=== PATIENT | female | born 1995 | race Caucasian/White ===

== ENCOUNTER 2023-07-17 20:29 | Emergency (ER) | payer MEDICAID, SELFPAY ==
[2023-07-17 20:37] VITALS: BP 143/83; PULSE 94; RESP 18; TEMP 37.2; O2SAT 99
--- NOTE | 2023-07-17 21:40 | ED_ITS ---
HPI - General Adult General Chief complaint: Unspecified Complaint, Adult Stated complaint: Back pain, incontinence, L leg numb Time Seen by Provider: 07/17/23 20:30 History of Present Illness HPI narrative: This 27-year-old female comes in with worsening low back symptoms with numbness down her left leg. She has been having some symptoms in her low back for the past 2 or 3 weeks and symptoms have been worsening. She was instructed to get an MRI but needed to have a physical 1st from her primary physician. This was completed and an MRI was ordered and completed at the [facility] in [place]. The patient states that she received a phone call from her doctor that the report was negative. She states that she is significantly worse today and reports 3 episodes of urinary incontinence. She does not report any stool incontinence or retention. She does have loss of sensation in parts of her perineum. She states that she is not having that much pain right now because everything seems numb. She does have some difficulty walking. Related Data Home Medications ?Medication ?Instructions ?Recorded ?Confirmed isotretinoin 30 mg capsule 30 mg PO BID 04/14/23 04/14/23 Allergies Allergy/AdvReac Type Severity Reaction Status Date / Time No Known Drug Allergies Allergy Verified 04/14/23 18:30 Review of Systems Status of ROS: Reports: 10 or more systems reviewed and unremarkable except as noted in History and below Narrative: Constitutional: No fevers, no weight gain or loss. Eyes: No discharge. No vision changes. HENT: No congestion, no sore throat, no ear pain. Cardiovascular: No chest pain, no palpitations. Respiratory: No shortness of breath, no wheezes, no cough. Gastrointestinal: No abdominal pain, no vomiting, no diarrhea. Genitourinary: No hematuria. Urinary incontinence 3 times today. Musculoskeletal: Normal range of motion. Skin: No rashes, no pruritis. Neurological: No dizziness, sensory change, speech change. Low back discomfort with paresthesias and anesthesia radiating into her left leg and groin. Endo/Heme/Allergies: No bruising or bleeding. No polydipsia. Pysch: no suicidality, no anxiety, no insomnia. All other systems reviewed and are negative. [facility] Surgical History (Updated 04/18/23 @ 11:36 by Sonal Portillo NP) History of tonsillectomy ?Z90.89 - Acquired absence of other organs (ICD-10) Exam Narrative: Exam Narrative: Constitutional: Well-developed, well-nourished, no acute distress. HEENT: Normocephalic, atraumatic. Neck: Normal range of motion. Nontender. Supple. Heart: Regular. No murmurs. Normal rate. Intact distal pulses. Lungs: Clear to auscultation. No chest discomfort. No wheezes, rhonchi, or rales. Abdomen: Normal bowel sounds. Nontender. No rebound tenderness. Genitalia: Deferred. Extremities: Normal range of motion. No injury. Skin: Intact. No rash. Warm. No erythema or pallor. Neurologic: Alert and oriented. Straight leg raise is positive. Decreased sensation throughout her whole left leg with anesthesia in the left groin and inguinal region. I pinched her skin right at the inguinal fold and she did not feel any pain. Psychiatric: No suicidality. No anxiety or depression. No insomnia. Nursing notes and vitals signs are reviewed. Const: Vital Signs, click to edit/add: Vital Signs - 24 hr 07/17/23 20:37 Temperature 98.9 F Pulse Rate [Pulse Oximeter] 94 Respiratory Rate 18 Blood Pressure [Ri ght Upper Arm] 143/83 H Pulse Oximetry 99 Oxygen Delivery Me thod Room Air Course Vital Signs Vital signs: Initial Vital Signs Temperature 98.9 F 07/17/23 20:37 Temperature Source Temporal Artery Scan 07/17/23 20:37 Pulse Rate 94 07/17/23 20:37 Respiratory Rate 18 07/17/23 20:37 Blood Pressure 143/83 H 07/17/23 20:37 Blood Pressure Mean 103 07/17/23 20:37 Blood Pressure Position Sitting 07/17/23 20:37 Pulse Oximetry 99 07/17/23 20:37 Oxygen Delivery Method Room Air 07/17/23 20:37 Vital Signs Temperature 98.9 F 07/17/23 20:37 Pulse Rate 94 07/17/23 20:37 Respiratory Rate 18 07/17/23 20:37 Blood Pressure 143/83 H 07/17/23 20:37 Pulse Oximetry 99 07/17/23 20:37 Oxygen Delivery Method Room Air 07/17/23 20:37 Temperature 98.9 F 07/17/23 20:37 Pulse Rate 94 07/17/23 20:37 Respiratory Rate 18 07/17/23 20:37 Blood Pressure 143/83 H 07/17/23 20:37 Pulse Oximetry 99 07/17/23 20:37 Oxygen Delivery Method Room Air 07/17/23 20:37 Medical Decision Making MDM Narrative Medical decision making narrative: This patient comes in with worsening low back pain and is showing signs and symptoms of cauda equina syndrome. She did have an MRI 2 days ago but images and report are not available. This was done through the [place] system. A call was made to [facility] but they stated that they are full and there was no further interested in any further conversation as to how they could help. A call was then made to [facility]. I spoke with a residential treatment specialist on- call, Dr. Huntley, who stated that she should come for MRI assessment. There are no beds available for about 8 hours but given the emergent possibility of cauda equina syndrome I then spoke with an emergency physician, Dr. Khan, who agreed to have her transferred there for an emergent MRI to further evaluate her symptoms. The patient is not in much discomfort as she states most of her symptoms are paresthesias or anesthesia. She will go by ambulance to [facility] Emergency Department. Discharge Plan Discharge Clinical Impression: Cauda equina syndrome Patient Disposition: Xfer [facility] Condition: Unchanged Prescriptions: No Action isotretinoin 30 mg capsule 30 mg PO BID Follow Up/Referrals: Provider,Not a Local [Primary Care Provider] - Stand Alone Forms: [employer] Info Instructions
[2023-07-17 21:49] VITALS: BP 131/86; PULSE 91; RESP 18; O2SAT 99
== END 2023-07-17 22:13 | disposition short-term general hospital (02) ==
PROVIDERS: Emergency Provider Emergency Medicine Emergency Medical Services
DX: M54.50 Low back pain, unspecified (principal); G83.4 Cauda equina syndrome
CPT/HCPCS: 99285

== ENCOUNTER 2023-07-17 22:09 | Outpatient (CLI) | payer MEDICAID, SELFPAY | END 2023-07-17 22:10 | disposition home or self-care (01) | LOC: AMB 07-22 18:51 | PROVIDERS: Visit Provider Emergency Medicine Emergency Medical Services | DX: G83.4 Cauda equina syndrome (principal) | CPT/HCPCS: A0425; A0429 ==

== ENCOUNTER 2023-09-28 14:32 | Outpatient (CLI) | payer MEDICAID, SELFPAY | END 2023-09-28 14:33 | disposition home or self-care (01) | LOC: WOUND 14:32 | PROVIDERS: Visit Provider Nurse Practitioner Family | DX: F44.4 Conversion disorder with motor symptom or deficit; S90.822A Blister (nonthermal), left foot, initial encounter | CPT/HCPCS: G0463 ==

== ENCOUNTER 2024-05-08 08:54 | Outpatient (CLI) | payer OTHER, SELFPAY ==
[2024-05-10 00:59] LABS: HPV Source Cervix; HPV, High Risk by TMA Not Detected
== END 2024-05-08 08:55 | disposition home or self-care (01) ==
PROVIDERS: PCP Registered Nurse; Visit Provider Registered Nurse
DX: Z12.4 Encounter for screening for malignant neoplasm of cervix (principal)
CPT/HCPCS: 87624; 87625; 88141; 88142

== ENCOUNTER 2024-06-11 15:12 | Outpatient (CLI) | payer OTHER, SELFPAY ==
[2024-06-11 19:53] LABS: Bacterial Vaginosis* Negative (Negative); Candida glab/krus NOT DETECTED (No Detected); Candida species NOT DETECTED (No Detected); Trichomonas vaginalis NOT DETECTED (No Detected)
[2024-06-11 20:24] LABS: Chlamydia DNA Amplified* NOT DETECTED (No Detected); GC DNA Amplified* NOT DETECTED (No Detected)
== END 2024-06-11 15:13 | disposition home or self-care (01) ==
PROVIDERS: PCP Registered Nurse; Visit Provider Physician Assistant
DX: N93.0 Postcoital and contact bleeding (principal); Z11.3 Encounter for screening for infections with a predominantly sexual mode of transmission
CPT/HCPCS: 81513; 87109; 87481; 87491; 87591; 87661

== ENCOUNTER 2024-09-01 15:51 | Emergency (ER) | payer OTHER, SELFPAY ==
[2024-09-01 16:12] VITALS: BP 148/97; PULSE 98; RESP 20; TEMP 37.4; O2SAT 98; BMI 24.6
--- NOTE | 2024-09-01 16:26 | ED_ITS ---
HPI - Abdominal Pain General Time Seen by Provider: 16:26 Date Seen: 09/01/24 Chief Complaint: Abdominal Pain Stated Complaint: stomach pain, bleeding Time Seen by Provider: 09/01/24 16:25 Source: patient and RN notes reviewed Mode of arrival: ambulatory Limitations: no limitations History of Present Illness HPI narrative: This 28-year-old female is coming into the ER with concerns of lower abdominal pain, some loose stools, some brownish watery vaginal discharge, some shoulder discomfort that does not hurt with movement, lightheadedness, cold tingly sensation over her body. Since Monday, she noted some brownish discharge vaginally, watery, there is no itching, no discomfort. She and her are actively attempting to conceive. She had a negative test last night and this morning. She was due to get her. On Monday. She has noticed some lower pelvic discomfort, feels like she has urinary urgency and fecal urgency. She has not had diarrhea or blood in her stools but has had softer stools. She just does not feel good but has had no fevers. Monday is when the lower abdominal pain really ensued. She has some right shoulder discomfort without trauma, does not hurt with movement of the shoulder, just feels a achy sensation of this shoulder. Today she started to feel lightheaded and has a sense of a cool tingly sensation all over her body. She admits that she has anxiety but just wants to get checked out. She has had an appendectomy in 2016, this is her only abdominal surgery. She has no respiratory symptoms with this. She has noted some nausea but no vomiting, has felt like she bloats easily with eating or drinking and feels like she has not been able to drink as much, feels she might be dehydrated. Related Data Home Medications ?Medication ?Instructions ?Recorded ?Confirmed azelaic acid 15 % topical gel 1 applic topical BID 06/21/24 buspirone 10 mg tablet 10 mg PO DAILY 06/11/2408/14 clindamycin phosphate 1 % topical 1 applic topical QDA Y 06/11/24 09/01/24 solution metronidazole 0.75 % topical cream 1 applic topical QD AY 06/11/24 06/21/24 mupirocin 2 % topical ointment 1 applic topical BID 06/21/24 sulfacetamide sodium 8 %-sulfur 4 1 applic topical QDA Y 06/11/24 06/21/24 % topical cleanser sulfacetamide sodium-sulfur 10 %-5 1 applic topical QD AY 06/11/24 06/21/24 % (w/w) topical cleanser Previous Rx's ?Medication ?Instructions ?Recorded azithromycin 250 mg tablet See Rx Instructions PO .COM PLEX #6 07/12/24 tabs Allergies Allergy/AdvReac Type Severity Reaction Status Date / Time doxycycline AdvReac Intermediate Gastrointestinal Verified 09/01/24 16:10 Upset Review of Systems Status of ROS Reports: 6 or more systems reviewed and unremarkable except as noted in History and below PFSH PFS Medical History Acne ?L70.9 - Acne, unspecified (ICD-10) MAMI (generalized anxiety disorder) ?F41.1 - Generalized anxiety disorder (ICD-10) Scoliosis ?M41.9 - Scoliosis, unspecified (ICD-10) Conversion disorder ?F44.9 - Dissociative and conversion disorder, unspecified (ICD-10) Surgical History History of appendectomy ?Z90.49 - Acquired absence of other specified parts of digestive tract (ICD- 10) H/O colposcopy with cervical biopsy ?Z98.890 - Other specified postprocedural states (ICD-10) History of tonsillectomy ?Z90.89 - Acquired absence of other organs (ICD-10) Family History Paternal Grandfather Heart disease Maternal Grandfather Heart disease Social History Narrative: works as a teacher, 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, 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, is a infantry officer Physical activity type: walking How many days of moderate to strenuous exercise, like a brisk walk, did you do in the last 7 days: 5 Smoking Status: Never smoker How often do you have a drink containing alcohol: 2-4 times a month AUDIT-C Alcohol total score: 2 Non-prescribed substance use: denies use Caffeine: Yes Are you now , , , , never or living with a partner: Social isolation score (0-1 are the most socially isolated patients): 1 Exam Const: Vital Signs, click to edit/add: Vital Signs - 24 hr 09/01/24 16:12 Temperature 99.3 F Pulse Rate [Pulse Oximeter] 98 Respiratory Rate 20 Blood Pressure [Ri ght Upper Arm] 148/97 H Pulse Oximetry 98 Oxygen Delivery Me thod Room Air This 22-year-old female is alert, interactive, no apparent distress but tearful and on seemingly anxious or and discussion. She certainly is pleasant however. Sclera clear, symmetrical facial function. Neck supple, no masses or rand opathy. Lungs are clear come good air entry, no wheezing or crackles, no tachypnea, no accessory muscle use. CV regular rate and rhythm, no murmur, normal S1-S2, no S3-S4. Abdomen is soft, nondistended, mild pelvic tenderness worse in the right lower outer quadrant and suprapubic area but no rebound or guarding, no organomegaly or masses felt. No appreciable left lower quadrant tenderness. Patient's body habitus is slender. Skin visualized without any rash. She has no pain on range of motion of shoulder but just feels a dull ache within the shoulder itself. Pelvic exam deferred at this point. Documenting provider has reviewed patient's vital signs: yes Course Course ED Course: Have reviewed with patient that we can proceed with pelvic US for imaging to rule out any ovarian/pelvic pathology. We can collect vaginitis swab, urine HCG and urinalysis. Will get full complement of labs. The shoulder pain doesn't seem to have anatomical pain with range of motion to it, could be referred pain. Will wait on labs and pelvic imaging but do not think we need to proceed with CT imaging at this time. Will look for infectious etiology, related issues or ovarian issues. Reevaluation(s) Time of Reevaluation #1: 18:38 Reevaluation #1: Reviewed patient's labs and her ultrasound with her. I would expect that she will be getting her menstrual cycle shortly with the collapsing corpus luteum cysts seen on the right ovary. She may have had pain on that right ovary from ovulation on that side and now the involuting corpus luteum. She is not pre gnant at this point but we did discuss that her ovary is functioning certainly, that is reassuring. Her labs are all reassuring. Would not recommend CT imaging at this time. We are going to discharge to home, she will follow up in clinic with ongoing concerns. She understands signs and symptoms to return to the ER. Vital Signs Vital signs: Initial Vital Signs Temperature 99.3 F 09/01/24 16:12 Temperature Source Temporal Artery Scan 09/01/24 16:12 Pulse Rate 98 09/01/24 16:12 Respiratory Rate 09/01/24 16:12 Blood Pressure 148/97 H 09/01/24 16:12 Blood Pressure Mean 114 H 09/01/24 16:12 Pulse Oximetry 98 09/01/24 16:12 Oxygen Delivery Method Room Air 09/01/24 16:12 Vital Signs Temperature 99.3 F 09/01/24 16:12 Pulse Rate 98 09/01/24 16:12 Respiratory Rate 20 09/01/24 16:12 Blood Pressure 148/97 H 09/01/24 16:12 Pulse Oximetry 98 09/01/24 16:12 Oxygen Delivery Method Room Air 09/01/24 16:12 Temperature 99.3 F 09/01/24 16:12 Pulse Rate 98 09/01/24 16:12 Respiratory Rate 09/01/24 16:12 Blood Pressure 148/97 H 09/01/24 16:12 Pulse Oximetry 98 09/01/24 16:12 Oxygen Delivery Method Room Air 09/01/24 16:12 Medications Administered Medications: Discontinued Medications Generic Name Dose Route Start Last Admin Trade Name Greogria PRN Reason Stop Dose Admin Sodium Chloride 1,000 mls @ 500 mls/hr 09/01/24 16:38 09/01/24 17:10 0.9 % Sodium Chloride 1000 Ml IV 09/01/24 18:37 500 mls/hr .Q2H PAT Administration MDM - Abdominal Pain Lab Data Attestation: I reviewed the patient's lab results. Labs: Lab Results 09/01/24 09/01/24 Range/Units 16:36 16:56 WBC 4.83 (4.50-11.00) K/uL RBC 4.52 (4.00-5.20) m/uL Hgb 13.0 (12.0-16.0) gm/dL Hct 38.4 (33.0-51.0) % MCV 85 (80-100) fL MCH 29 (26-34) pg MCHC 34 (32-36) gm/dL RDW Coeff of Delphine 13.0 (11.5-15.5) % Plt Count 271 (140-440) K/uL Neut % (Auto) 62.7 (42.0-72.0) % Lymph % (Auto) 25.5 (20-44) % [place] % (Auto) 9.5 (0.0-11.0) % Eos % (Auto) 1.7 (0.0-7.0) % Baso % (Auto) 0.4 (0.0-3.0) % Neut # (Auto) 3.03 (1.7-7.0) K/uL Lymph # (Auto) 1.23 (0.90-2.90) K/uL [place] # (Auto) 0.50 (0.00-0.90) K/UL Eos # (Auto) 0.08 (0.00-0.50) K/uL Baso # (Auto) 0.02 (0.00-0.30) K/uL Abs Immat Gran (auto) 0.01 (0.00-0.30) K/uL Imm/Tot Granulo (auto) 0.2 % Sodium 140 (135-149) mmol/L Potassium 3.7 (3.6-5.1) mmol/L Chloride 109 (96-114) mmol/L Carbon Dioxide 20 (20-32) mmol/L Anion Gap 11 (7-15) mEq/L BUN 9 (5-24) mg/dL Creatinine 0.8 (0.5-1.5) mg/dL Estimated Creat Clear 94.21 Estimated GFR 103 ml/min Glucose 100 (60-115) mg/dL Lactate 1.5 (0.5-1.9) mmol/L Calcium 9.0 (8.4-10.6) mg/dL Total Bilirubin 0.4 (0.1-1.5) mg/dL Direct Bilirubin 0.1 (0.0-0.5) mg/dL AST 25 (12-35) U/L ALT 17 (4-35) U/L Alkaline Phosphatase 49 (40-150) U/L C-Reactive Protein < 0.5 L (0.5-1.0) mg/dL Total Protein 7.5 (6.0-8.3) g/dL Albumin 4.4 (3.3-5.0) g/dL Lipase 81 (23-300) U/L Urine Color Yellow (Yellow) Urine Appearance Clear (Clear) Urine pH 7.0 (5.0-8.5) Ur Specific [place] 1.010 (1.000-1.030) Urine Protein Negative (Negative) Urine Glucose (UA) Negative (Negative) Urine Ketones Negative (Negative) Urine Blood 2+ A (Negative) Urine Nitrite Negative (Negative) Urine Bilirubin Negative (Negative) Urine Urobilinogen 0.2 (0.2-1.0) Ur Leukocyte Esterase Negative (Negative) Urine RBC 2-5 A (0-2) Urine WBC 0-2 (0-5) Ur Squamous Epith Cells Few (None-Few) Urine Bacteria Moderate A (None) Urine HCG, Qual Negative (Negative) Vaginal Bacterial Vaginosis Negative (Negative) Vaginal Barbie species NOT DETECTED (No Detected) Vag C. glabrata/krusei NOT DETECTED (No Detected) Vag T. vaginalis NOT DETECTED (No Detected) Imaging Data US pelvis: Attestation: I have reviewed the pertinent imaging results. Radiologist's impression: Patient: ERIK KEYES Facility:?[facility] Patient ID:?[id number] Site Patient ID:?[id number]. Site :?[id number] Study:?US-Pelvis -09/01/2024 5:47:21 PM Ordering Physician:?Avelino Valencia Final Report: INDICATION: Pelvic pain. TECHNIQUE: Ultrasound pelvis transabdominal and transvaginal for better assessment or to better visualize the endometrium. Real-time sonographic images with spectral and color Doppler imaging of the ovaries were obtained. COMPARISON: None. FINDINGS: Uterus: size cm. Normal echotexture of the myometrium. No masses. Endometrium: Transvaginal imaging was performed to better evaluate the endometrium. Endometrial thickness measures 6 mm. Few small echogenic foci in the endometrium are nonspecific, but may reflect calcifications from remote inflammation. No sign of endometrial mass or fluid. Right ovary 5.8 mL. Left ovary 5.7 mL. Right ovarian mildly heterogeneous ovoid focus measures 1.1 cm. Normal arterial and venous blood flow is demonstrated in both ovaries. Cul-de-sac: No significant free fluid. IMPRESSION: 1. No evidence of ovarian torsion. 2. Right ovarian mildly heterogeneous ovoid focus measures 1.1 cm, and is nonspecific, but may reflect a collapsed corpus luteum. Dictated by Dung Brunner MD @ 09/01/2024 6:21:36 PM (Electronic Signature) Discharge Plan Discharge Clinical Impression: Corpus luteum cyst of right ovary Patient Disposition: Home, Self-Care Condition: Stable Instructions: Ovarian Cyst (ED) Additional Instructions: The corpus luteum looks to be degenerating or involuting on the ultrasound. Thi s is a normal finding in a cycle when a patient does not become . I would anticipate that she will get her menstrual cycle shortly. If you are having concerns about menstrual cycles, conceiving, can make a follow-up appointment with [facility]. Otherwise, if you develop significant abdominal pain, have vomiting with it, have fever with these symptoms, do recommend re-evaluation in the ER. Activity Level: No Restrictions Prescriptions: No Action buspirone 10 mg tablet 10 mg PO DAILY azelaic acid 15 % gel 1 applic topical BID clindamycin phosphate 1 % solution 1 applic topical QDAY metronidazole 0.75 % cream 1 applic topical QDAY mupirocin 2 % ointment 1 applic topical BID sulfacetamide sodium-sulfur 10-5 % (w/w) cleanser 1 applic topical QDAY sulfacetamide sodium-sulfur 8-4 % cleanser 1 applic topical QDAY Rx Instructions: lather on wet skin; leave on for 10-20 seconds; rinse azithromycin 250 mg tablet See Rx Instructions PO .COMPLEX Qty: 6 0RF Rx Instructions: For 250 mg dose pack: take 500 mg today (day 1), then 250 mg for 4 days (days 2-5) PO Follow Up/Referrals: Hazel Galindo, ENROLLMENT ELIGIBILITY REPRESENTATIVE [Primary Care Provider, Family Practice] Stand Alone Forms: [employer] Info Instructions
--- NOTE | 2024-09-01 16:36 | CRLHL7_ITS ---
For Patients: As a result of the Century Cures Act, medical imaging exams and procedure reports are released immediately into your electronic medical record. You may view this report before your referring provider. If you have questions, please contact your health care provider. INDICATION: Pelvic pain. TECHNIQUE: Ultrasound pelvis transabdominal and transvaginal for better assessment or to better visualize the endometrium. Real-time sonographic images with spectral and color Doppler imaging of the ovaries were obtained. COMPARISON: None. FINDINGS: Uterus: size cm. Normal echotexture of the myometrium. No masses. Endometrium: Transvaginal imaging was performed to better evaluate the endometrium. Endometrial thickness measures 6 mm. Few small echogenic foci in the endometrium are nonspecific, but may reflect calcifications from remote inflammation. No sign of endometrial mass or fluid. Right ovary 5.8 mL. Left ovary 5.7 mL. Right ovarian mildly heterogeneous ovoid focus measures 1.1 cm. Normal arterial and venous blood flow is demonstrated in both ovaries. Cul-de-sac: No significant free fluid. IMPRESSION: 1. No evidence of ovarian torsion. 2. Right ovarian mildly heterogeneous ovoid focus measures 1.1 cm, and is nonspecific, but may reflect a collapsed corpus luteum. Dictated by Dung Brunner MD @ 09/01/2024 6:21:36 PM (Electronically Signed)
[2024-09-01 17:06] LABS: Lactate* 1.5 mmol/L (0.5-1.9)
[2024-09-01 17:07] LABS: Hematocrit 38.4 % (33.0-51.0); Hemoglobin* 13.0 gm/dL (12.0-16.0); Immature Granulocytes Abs Auto 0.01 K/uL (0.00-0.30); Immature Granulocytes Pct Auto 0.2 %; Lymphocytes Absolute Auto 1.23 K/uL (0.90-2.90); Mean Corpuscular HGB Conc 34 gm/dL (32-36); Mean Corpuscular Hemoglobin 29 pg (26-34); Mean Corpuscular Volume 85 fL (80-100); RDW Coefficient of Variation % 13.0 % (11.5-15.5); Red Blood Count 4.52 m/uL (4.00-5.20); White Blood Count* 4.83 K/uL (4.50-11.00)
[2024-09-01 17:13] LABS: Appearance Urine Clear (Clear)
[2024-09-01 17:23] LABS: Slide Review Reflex No
[2024-09-01 17:26] LABS: Albumin* 4.4 g/dL (3.3-5.0); Chloride* 109 mmol/L (96-114); Potassium* 3.7 mmol/L (3.6-5.1); Sodium* 140 mmol/L (135-149)
[2024-09-01 17:28] LABS: Blood Urea Nitrogen* 9 mg/dL (5-24); Creatinine* 0.8 mg/dL (0.5-1.5); Est. Creatinine Clearance* 94.21; Estimated Glomerular Filt Rate 103 ml/min
[2024-09-01 17:29] LABS: Alanine Aminotransferase* 17 U/L (4-35); Alkaline Phosphatase* 49 U/L (40-150); Anion Gap 11 mEq/L (7-15); Aspartate Amino Transferase* 25 U/L (12-35); Bilirubin Direct* 0.1 mg/dL (0.0-0.5); Bilirubin Total* 0.4 mg/dL (0.1-1.5); Calcium* 9.0 mg/dL (8.4-10.6); Carbon Dioxide* 20 mmol/L (20-32); Glucose* 100 mg/dL (60-115); Total Protein* 7.5 g/dL (6.0-8.3)
[2024-09-01 17:55] LABS: Ur HCG Qualitative* Negative (Negative)
[2024-09-01 18:12] LABS: Bacterial Vaginosis* Negative (Negative); Candida glab/krus NOT DETECTED (No Detected)
[2024-09-01 18:51] VITALS: BP 105/63; TEMP 37.4
== END 2024-09-01 19:00 | disposition home or self-care (01) ==
PROVIDERS: Emergency Provider Family Medicine; PCP Registered Nurse
DX: N83.11 Corpus luteum cyst of right ovary (principal)
CPT/HCPCS: 36415; 76830; 76856; 80053; 81001; 81025; 81513; 82248; 83605; 83690; 85025; 86140; 87086; 87481; 87661; 93976; 94761; 99284; J7030